=== PATIENT | male | born 1980 | race Caucasian/White ===

== ENCOUNTER 2017-01-05 00:55 | Emergency (ER) | payer OTHER ==
[~2017-01-05] VITALS: Ht 177.8 cm; Wt 81.2 kg
[~2017-01-05 00:55] MED LIST: BACL10TA PO; BACT2OIN TOP; BACT800T5 PO; CEPH500C3 PO; CYMB30CA PO; HIBI4LIQ TOP; OMEP20TA39 PO; PERC7.5T13 PO
[2017-01-05 01:03] VITALS: BP 135/101; PULSE 92; RESP 14; TEMP 98.4; O2SAT 97
[2017-01-05] MEDS ORDERED: OMEP40CA2 PO (01:11)
[2017-01-05] MEDS ORDERED: WELL200T PO (01:11)
[2017-01-05] MEDS ORDERED: BUPR100T4 PO (01:11)
[2017-01-05] MEDS ORDERED: CYMB60CA PO (01:11)
[2017-01-05] MEDS ORDERED: SILVER NITR/POTASSIUM NITRATE APPLICATORS TOPICAL ONE (01:30)
[2017-01-05] MEDS ORDERED: GELATIN 12 MM/7 MM FOAM TOPICAL ONE (01:30)
[2017-01-05] MEDS ORDERED: LIDOCAINE 1%/EPINEPHrine 1:100,000 SOLN 30 ML VIAL ONE (01:44)
[2017-01-05] MEDS ORDERED: LIDOCAINE 1%/EPINEPHrine 1:100,000 SOLN 20 ML VIAL INFIL ONE (01:45)
[2017-01-05] MEDS ORDERED: LIDOCAINE 1%/EPINEPHrine 1:100,000 SOLN 30 ML VIAL INFIL ONE (02:00)
[2017-01-05 02:12] VITALS: BP 127/86; PULSE 82; RESP 16; O2SAT 98
--- NOTE | 2017-01-05 02:26 | PD ---
HPI Chief Complaint: Bleeding Time Seen by Provider: 01:30 Travel History International Travel<30 days: No Contact w/Intl Traveler<30days: No Traveled to known affect area: No History of Present Illness HPI 36 old man with a history of skin condition that sounds like psychiatric disease or anxiety presents with bleeding from his chin. He looks otherwise well. History Past Medical History Narrative Medical Depression Tetanus Vaccination: > 5 Years Social History Alcohol Use: No Tobacco Use: Yes (1 PPD) Allergies-Medications (Allergen,Severity, Reaction): Coded Allergies: No Known Allergies (Verified , 01/16/16) Reported Meds & Prescriptions Reported Meds & Active Scripts Active Reported Omeprazole 40 Mg Cap 40 Mg PO DAILY Bupropion HCl 100 Mg Tab 100 Mg PO HS Wellbutrin SR 12 HR (Bupropion HCl) 200 Mg Tab 200 Mg PO DAILY Cymbalta DR (Duloxetine HCl) 60 Mg Capdr 90 Mg PO DAILY Review of Systems Except as stated in HPI: all other systems reviewed are Neg Physical Exam Narrative GENERAL: 36-year-old man, no acute distress. SKIN: Warm and dry. He has innumerable scattered point shaped scarring. On his left dixon he has an area of bleeding where he has been digging at it. CARDIOVASCULAR: Warm and well perfused. RESPIRATORY: Normal rate and effort. NEUROLOGICAL: Awake and alert. No gross deficits. Data Data Last Documented VS Vital Signs Date Time Temp Pulse Resp B/P Pulse Ox O2 Delivery O2 Flow Rate FiO2 01/05/17 02:12 82 16 127/86 98 Room Air 01/05/17 01:03 98.4 Orders Gelatin 12 Mm/7 Mm Top (Gelfoam 12 Mm/7 (01/05/17 01:30) Silver Nitrate Applicators (Silver Nitra (01/05/17 01:30) Lidocai-Epi 1%-1:100,000 Inj (Xylocaine- (01/05/17 01:44) Lidocai-Epi 1%-1:100,000 Inj (Xylocaine- (01/05/17 02:00) MDM Medical Decision Making Medical Screen Exam Complete: Yes Emergency Medical Condition: Yes Differential Diagnosis Anxiety, trichomania, other Narrative Course Medical decision making 36 old man presents with bleeding from his chin. He picks every where apparently. Looks like it's anxiety related. The bleeding was ongoing. He tried direct pressure without success. I applied silver nitrate cautery to the area, followed by direct pressure which was successful. Diagnosis Primary Impression: Bleeding Additional Instructions: Gentle soap and water to the area to keep it clean. Avoid picking at skin wound. Return to the emergency department for any new or worsening symptoms. Med/Other Pt SpecificInfo: No Change to Meds Disposition: 01 DISCHARGE HOME Condition: Stable Umair Hood MD Jan 05, 2017 02:26
== END 2017-01-05 03:06 | disposition home or self-care (01) ==
LOC: PHED 00:55
DX: S00.80XA Unspecified superficial injury of other part of head, initial encounter (principal); X58.XXXA Exposure to other specified factors, initial encounter; F17.210 Nicotine dependence, cigarettes, uncomplicated
CPT/HCPCS: 12011

== ENCOUNTER 2017-08-21 10:15 | Emergency (ER) | payer OTHER ==
[~2017-08-21] VITALS: Ht 180.3 cm; Wt 74.7 kg
[~2017-08-21 10:15] MED LIST changes: -BACL10TA PO; -BACT2OIN TOP; -BACT800T5 PO; +BUPR100T4 PO; -CEPH500C3 PO; -CYMB30CA PO; +CYMB60CA PO; -HIBI4LIQ TOP; -OMEP20TA39 PO; +OMEP40CA2 PO; -PERC7.5T13 PO; +WELL200T PO
[2017-08-21 10:22] VITALS: BP 137/94; PULSE 99; RESP 18; TEMP 98.3; O2SAT 99
[2017-08-21 11:08] LABS: BASOPHIL # 0.4 TH/MM3 (0-0.2); BASOPHIL % 2.7 % (0.0-2.0); EOSINOPHIL # 0.3 TH/MM3 (0-0.4); EOSINOPHIL % 2.3 % (0.0-4.0); HEMATOCRIT 36.7 % (39.0-51.0); HEMOGLOBIN 12.5 GM/DL (13.0-17.0); LYMPH % 14.8 % (9.0-44.0); LYMPHOCYTE # 2.1 TH/MM3 (1.0-4.8); MEAN CELL VOLUME 79.5 FL (80.0-100.0); MEAN PLATELET VOLUME 7.5 FL (7.0-11.0); MONOCYTE # 1.3 TH/MM3 (0-0.9); NEUT % 71.2 % (16.0-70.0); PLATELET COUNT 334 TH/MM3 (150-450); RED BLOOD COUNT 4.61 MIL/MM3 (4.50-5.90); RED CELL DISTRIBUTION WIDTH 15.1 % (11.6-17.2); WHITE BLOOD COUNT 14.1 TH/MM3 (4.0-11.0)
--- NOTE | 2017-08-21 11:09 | PD ---
Data Data Last Documented VS Vital Signs Date Time Temp Pulse Resp B/P (MAP) Pulse Ox O2 Delivery O2 Flow Rate FiO2 08/21/17 10:22 98.3 99 18 137/94 (108) 99 Orders Orders Basic Metabolic Panel (Bmp) (08/21/17 10:43) Complete Blood Count With Diff (08/21/17 10:43) Wound Culture And Gram Stain (08/21/17 10:43) Iv Access Insert/Monitor (08/21/17 10:43) Ct Facial Bones W Iv Contrast (08/21/17 ) Lactic Acid Sepsis Protocol (08/21/17 10:43) MDM Supervised Visit with SKINNY: No Narrative Course I, Dr. Dave, have reviewed the advance practice practitioner's documentation and am in agreement, met with the patient face to face, made the diagnosis, and the medical decision making was done by me. 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 Basic labs CAT scan of his face has been ordered, I anticipate if the workup is uncomplicated will be discharged home on p.o. antibiotics. Luis Dave MD Aug 21, 2017 11:09
--- NOTE | 2017-08-21 11:09 | PD ---
HPI Chief Complaint: Facial Pain or Swelling Time Seen by Provider: 10:30 Travel History International Travel<30 days: No Contact w/Intl Traveler<30days: No Traveled to known affect area: No History of Present Illness HPI 36-year-old male here with facial pain and swelling 3 days. Patient reports he had a small scab to the right upper lip which he believes is infected. Denies fevers but reports chills. swelling originated in the right upper lip and is now extending into the cheek. Severity is moderate. Unrelieved by OTC Motrin. PFSH Past Medical History Anxiety: Yes Depression: Yes (PTSD) Cancer: No Cardiovascular Problems: No High Cholesterol: Yes Diminished Hearing: No Endocrine: No Gastrointestinal Disorders: Yes (GERD) GERD: Yes Genitourinary: No Headaches: Yes Immune Disorder: No Implanted Vascular Access Dvce: No Musculoskeletal: Yes (BACK AND R KNEE) Neurologic: No Psychiatric: Yes (PTSD) Reproductive: No Respiratory: No Integumentary: Yes (Skin picking DO) Sleep Apnea: Yes (HAS CPAP) Tetanus Vaccination: > 5 Years Influenza Vaccination: No Past Surgical History Abdominal Surgery: Yes (RIGHT HERNIA REPAIR 1985.) Genitourinary Surgery: Yes ( ASCENDING TESTICLE: AGE 5) Tonsillectomy: Yes Other Surgery: Yes (hydrocele, undescended testicle right, hernia) Social History Alcohol Use: No Tobacco Use: Yes (1/2 PPD, trying to quit) Substance Use: No (Denies ) Allergies-Medications (Allergen,Severity, Reaction): Coded Allergies: No Known Allergies (Verified Adverse Reaction, Unknown, 08/21/17) Reported Meds & Prescriptions Reported Meds & Active Scripts Active [address] (Hydrocodone-Acetaminophen) 5 Mg-325 Mg Tab 1 Tab PO Q6H PRN Clindamycin (Clindamycin HCl) 300 Mg Cap 300 Mg PO Q6H 10 Days Reported Omeprazole 40 Mg Cap 40 Mg PO DAILY Wellbutrin SR 12 HR (Bupropion HCl) 200 Mg Tab 450 Mg PO DAILY Cymbalta DR (Duloxetine HCl) 60 Mg Capdr 120 Mg PO DAILY Review of Systems Except as stated in HPI: all other systems reviewed are Neg General / Constitutional: Positive: Chills Eyes: No: Visual changes HENT: No: Headaches Cardiovascular: No: Chest Pain or Discomfort Respiratory: No: Shortness of Breath Gastrointestinal: No: Abdominal Pain Genitourinary: No: Dysuria Skin: Positive Other (abscess right upper lip) Neurologic: No: Weakness Physical Exam Narrative GENERAL: Alert and well-appearing 36-year-old male SKIN: Notable swelling, erythema, induration to right upper lip extending across right zygoma. Numerous scabs and areas of hypopigmentation across patient 's entire body. HEAD: Normocephalic. EYES: No injection or drainage. Pupils equal, round, reactive. EOMs intact. NECK: Supple, trachea midline. No lymphadenopathy. CARDIOVASCULAR: Regular rate and rhythm without murmurs, gallops, or rubs. RESPIRATORY: Breath sounds equal bilaterally. No accessory muscle use. GASTROINTESTINAL: Abdomen soft, non-tender, nondistended. MUSCULOSKELETAL: No cyanosis, or edema. BACK: No CVA tenderness. Data Data Last Documented VS Vital Signs Date Time Temp Pulse Resp B/P (MAP) Pulse Ox O2 Delivery O2 Flow Rate FiO2 08/21/17 12:10 91 18 153/93 (113) 96 Room Air 08/21/17 10:22 98.3 Orders Orders Basic Metabolic Panel (Bmp) (08/21/17 10:43) Complete Blood Count With Diff (08/21/17 10:43) Wound Culture And Gram Stain (08/21/17 10:43) Iv Access Insert/Monitor (08/21/17 10:43) Ct Facial Bones W Iv Contrast (08/21/17 ) Lactic Acid Sepsis Protocol (08/21/17 10:43) Iohexol 350 Inj (Omnipaque 350 Inj) (08/21/17 11:51) Acetamin-Hydrocod 325-5 Mg ([address] 5-325 (08/21/17 12:15) Clindamycin Inj (Cleocin Inj) (08/21/17 12:30) Labs Laboratory Tests Test 08/21/17 11:00 08/21/17 11:12 White Blood Count 14.1 TH/MM3 Red Blood Count 4.61 MIL/MM3 Hemoglobin 12.5 GM/DL Hematocrit 36.7 % Mean Corpuscular Volume 79.5 FL Mean Corpuscular Hemoglobin 27.0 PG Mean Corpuscular Hemoglobin Concent 34.0 % Red Cell Distribution Width 15.1 % Platelet Count 334 TH/MM3 Mean Platelet Volume 7.5 FL Neutrophils (%) (Auto) 71.2 % Lymphocytes (%) (Auto) 14.8 % Monocytes (%) (Auto) 9.0 % Eosinophils (%) (Auto) 2.3 % Basophils (%) (Auto) 2.7 % Neutrophils # (Auto) 10.0 TH/MM3 Lymphocytes # (Auto) 2.1 TH/MM3 Monocytes # (Auto) 1.3 TH/MM3 Eosinophils # (Auto) 0.3 TH/MM3 Basophils # (Auto) 0.4 TH/MM3 CBC Comment DIFF FINAL Differential Comment Blood Urea Nitrogen 8 MG/DL Creatinine 0.74 MG/DL Random Glucose 98 MG/DL Calcium Level 8.9 MG/DL Sodium Level 139 MEQ/L Potassium Level 3.8 MEQ/L Chloride Level 105 MEQ/L Carbon Dioxide Level 29.2 MEQ/L Anion Gap 5 MEQ/L Estimat Glomerular Filtration Rate 120 ML/MIN Lactic Acid Level 0.7 mmol/L MDM Medical Decision Making Medical Screen Exam Complete: Yes Emergency Medical Condition: Yes Interpretation(s) CBC: WBC 14.1, mild anemia H/H 12.5/36.7 BMP: Unremarkable Lactic: 0.7 CT: Diffuse edema without evidence of abscess Differential Diagnosis Facial abscess, facial cellulitis, folliculitis Narrative Course 36-year-old male here with facial pain and swelling. Patient is nontoxic- appearing. Labs and CT scan were reviewed. No evidence of abscess. Patient will be treated for facial cellulitis. Given 1 dose of IV clindamycin here and discharged home with strict return precautions. She is stable Patient verbalizes understanding and agrees to plan Diagnosis Primary Impression: Facial cellulitis Referrals: Primary Care Physician Additional Instructions: Antibiotics as directed. Pain medication as needed. Follow-up with her primary doctor for recheck on Thursday. Return if he developed new or worsening symptoms. Scripts Mupirocin Topical (Bactroban Topical) 22 Gm Cream 1 APPLIC TOPICAL BID for Mgmt Bacterial Infection, #1 TUBE 0 Refills Prov: Ivis Lawrence TAX STAFF ACCOUNTANT 08/21/17 Hydrocodone-Acetaminophen ([address]) 5 Mg-325 Mg Tab 1 TAB PO Q6H Y for PAIN, #12 TAB 0 Refills Prov: Ivis Lawrence TAX STAFF ACCOUNTANT 08/21/17 Clindamycin (Clindamycin) 300 Mg Cap 300 MG PO Q6H for Infection for 10 Days, #40 CAP 0 Refills Prov: LeeIvis cordoba 08/21/17 Disposition: 01 DISCHARGE HOME Condition: Stable Ivis Lawrence Aug 21, 2017 11:09
[2017-08-21 11:17] LABS: CALCIUM 8.9 MG/DL (8.5-10.1)
[2017-08-21 11:18] LABS: BICARBONATE 29.2 MEQ/L (21.0-32.0)
[2017-08-21 11:21] LABS: CREATININE 0.74 MG/DL (0.60-1.30)
[2017-08-21] MEDS ORDERED: IOHEXOL 350 MG/ML 10 ML VIAL (for RAD DIAG) IVCONTRAST ONE (11:51)
[2017-08-21 12:10] VITALS: BP 153/93; PULSE 91; RESP 18; O2SAT 96
[2017-08-21] MEDS ORDERED: ACETAMINOPHEN/HYDROcodone 325 MG/5 MG TAB PO ONE (12:15)
--- NOTE | 2017-08-21 12:19 | RADRPT ---
EXAM DATE/TIME: 08/21/2017 11:41 [facility] COMPARISON: No previous studies available for comparison. INDICATIONS : Right facial and lip swelling x 2 days. Evaluate for abscess. IV CONTRAST: 60 cc Omnipaque 350 (iohexol) IV RADIATION DOSE: 29.92 CTDIvol (mGy) MEDICAL HISTORY : Gastroesophageal reflux disease. SURGICAL HISTORY : Inguinal hernia repair. Fusion, cervical.Fusion, lumbar. ENCOUNTER: Initial ACUITY: 2 days PAIN SCALE: 7/10 LOCATION: Right facial TECHNIQUE: Volumetric scanning of the facial bones was performed. Using automated exposure control and adjustme nt of the mA and/or kV according to patient size, radiation dose was kept as low as reasonably achiev able to obtain optimal diagnostic quality images. DICOM format image data is available electronicall y for review and comparison. FINDINGS: ORBITS: The orbital and infraorbital osseous structures are intact. The retroconal structures have a normal configuration. No radiopaque foreign bodies are seen. NASAL BONE: The nasal bone and maxillary spine are intact ZYGOMATIC ARCHES: Symmetric without evidence of fracture. SINUSES: The maxillary, ethmoid and frontal sinuses are intact. No air-fluid levels seen. NASAL CAVITY: The nasal septum is intact and midline. The lacrimal ducts are intact. SOFT TISSUES: Diffuse stranding and edema involving the superficial tissue planes of the right inferior face with t hickening of the superficial muscular aponeurotic system layer. No subcutaneous emphysema or focal dr ainable fluid collections. Adjacent mandible appears intact without evidence for lytic abnormality. INTRACRANIAL: No intracranial air seen. CRIBIFORM PLATE: Grossly intact. CONCLUSION: 1. Diffuse edema and stranding involving the superficial tissue planes of the right inferior face and thickening of the SMAS layer. No evidence for abscess or subcutaneous emphysema at the same at this time. No adjacent bony involvement. David Pete MD on August 21, 2017 at 12:06 Board Certified Radiologist. This report was verified electronically.
[2017-08-21] MEDS ORDERED: NORC5TAB PO (12:28)
[2017-08-21] MEDS ORDERED: CLIN300C5 PO (12:28)
[2017-08-21] MEDS ORDERED: CLINDAMYCIN INJ 600 MG in SODIUM CHLORIDE 0.9% INJ 100 ML IV ONE (12:30)
[2017-08-21] MEDS ORDERED: MUPI2%T TOPICAL (12:34)
[2017-08-21 13:30] VITALS: BP 146/79
== END 2017-08-21 13:30 | disposition home or self-care (01) ==
LOC: PHED 10:15
DX: L03.211 Cellulitis of face (principal); B95.61 Methicillin susceptible Staphylococcus aureus infection as the cause of diseases classified elsewhere; F42.4 Excoriation (skin-picking) disorder; E78.00 Pure hypercholesterolemia, unspecified; K21.9 Gastro-esophageal reflux disease without esophagitis; F41.9 Anxiety disorder, unspecified; F32.9 Major depressive disorder, single episode, unspecified; F43.10 Post-traumatic stress disorder, unspecified; F17.210 Nicotine dependence, cigarettes, uncomplicated; Z79.899 Other long term (current) drug therapy
CPT/HCPCS: 70487; 80048; 83605; 85025; 86403; 87070; 87186; 96365; 99284; Q9967